=== PATIENT | male | born 1975 | race Caucasian/White ===

== ENCOUNTER 2023-05-29 18:26 | Inpatient (IN) | payer MEDICAID, OTHER ==
[~2023-05-29] VITALS: Ht 167.6 cm; Wt 48.5 kg
[2023-05-29] MEDS ORDERED: IV NORMAL SALINE 1000 ML BAG IV ONE (18:45)
[2023-05-29] MEDS ORDERED: TAMSULOSIN (18:58)
[2023-05-29] MEDS ORDERED: MIDODRINE (18:58)
[2023-05-29] MEDS ORDERED: [UNRECOGNIZED DRUG - OTHER] (18:58)
[2023-05-29] MEDS ORDERED: FERROUS SULFATE (18:58)
[2023-05-29] MEDS ORDERED: HYDROMORPHONE 1 MG/1 ML DISP.SYRIN IV ONE (19:15)
[2023-05-29] MEDS ORDERED: HYDROMORPHONE 1 MG/1 ML DISP.SYRIN ONE (19:19)
[2023-05-29 19:59] LABS: BASOPHILS # (AUTO) 0.3 K/UL (0.0-0.2); BASOPHILS % (AUTO) 2.2 % (0.0-2.0); EOSINOPHILS # (AUTO) 0.2 K/uL (0.0-0.7); EOSINOPHILS % (AUTO) 1.4 % (0.0-7.0); HEMATOCRIT 33.4 % (36.7-47.1); HEMOGLOBIN 10.5 g/dL (12.5-16.3); LYMPHOCYTES # (AUTO) 1.8 K/uL (0.8-4.8); LYMPHOCYTES % (AUTO) 12.3 % (20.5-51.5); MEAN CORPUSCULAR HEMOGLOBIN 23.7 uug (23.8-33.4); MEAN CORPUSCULAR HGB CONC 32 g/dL (32.5-36.3); MEAN CORPUSCULAR VOLUME 74.9 fL (73.0-96.2); MONOCYTES # (AUTO) 0.4 K/uL (0.1-1.30); NEUTROPHILS # (AUTO) 11.9 K/uL (1.8-8.9); NEUTROPHILS % (AUTO) 81.1 % (38.5-71.5); PLATELET COUNT (AUTO) 704 K/uL (152-348); RED BLOOD CELL COUNT(AUTO) 4.45 MIL/uL (4.06-5.63); RED CELL DISTRIBUTION WIDTH 26.7 % (12.1-16.2); WHITE BLOOD COUNT (AUTO) 14.6 K/uL (3.6-10.2)
[2023-05-29 20:00] LABS: DIFFERENTIAL COMMENT 1
[2023-05-29 20:08] LABS: MAGNESIUM 2.1 mg/dL (1.8-2.4)
[2023-05-29 20:38] LABS: CALCIUM 8.7 mg/dL (8.5-10.1); CARBON DIOXIDE 19 mmol/L (21-32); CHLORIDE 102 mmol/L (98-107); CREATININE 0.5 mg/dL (0.6-1.3); GLUCOSE 111 mg/dL (74-106); POTASSIUM 3.6 mmol/L (3.5-5.1); SODIUM SERUM 135 mmol/L (136-145); UREA NITROGEN, BLOOD 11 mg/dL (7-18)
[2023-05-29 20:47] LABS: ALANINE AMINOTRANSFERASE 15 U/L (16-63); ALBUMIN 3.2 g/dL (3.4-5.0); ALKALINE PHOSPHATASE 89 U/L (50-136); ASPARTATE AMINOTRANSFERASE 15 U/L (15-37); BILIRUBIN,DIRECT 0.1 mg/dL (0.0-0.2); BILIRUBIN,TOTAL 0.4 mg/dL (0.2-1.0); TOTAL PROTEIN, SERUM 8.8 g/dL (6.4-8.2)
[2023-05-29] MEDS ORDERED: MAGNESIUM HYDROXIDE 30 ML LIQUID UDC PO PRN (23:15)
[2023-05-29] MEDS ORDERED: ONDANSETRON 4 MG/2 ML VIAL IV PRN (23:15)
[2023-05-29] MEDS ORDERED: IV NS 1000 ML 1,000 ML IV PRN (23:15)
[2023-05-29] MEDS ORDERED: REMEDY ESSENTIAL ZINC PASTE 113 GM TP PRN (23:15)
[2023-05-29] MEDS ORDERED: ACETAMINOPHEN 325 MG TABLET PO PRN (23:15)
[2023-05-30] VITALS (30 sets, daily range): BP systolic 65–225; BP diastolic 46–142; TEMP 97.3–98; O2SAT 100
[2023-05-30 04:49] LABS: BASOPHILS # (AUTO) 0.1 K/UL (0.0-0.2); BASOPHILS % (AUTO) 0.6 % (0.0-2.0); EOSINOPHILS # (AUTO) 0.2 K/uL (0.0-0.7); EOSINOPHILS % (AUTO) 2.3 % (0.0-7.0); HEMATOCRIT 29.6 % (36.7-47.1); HEMOGLOBIN 9.7 g/dL (12.5-16.3); LYMPHOCYTES # (AUTO) 2.4 K/uL (0.8-4.8); LYMPHOCYTES % (AUTO) 23.8 % (20.5-51.5); MEAN CORPUSCULAR HEMOGLOBIN 24.4 uug (23.8-33.4); MEAN CORPUSCULAR HGB CONC 33 g/dL (32.5-36.3); MEAN CORPUSCULAR VOLUME 74.3 fL (73.0-96.2); MONOCYTES # (AUTO) 0.6 K/uL (0.1-1.30); MONOCYTES % (AUTO) 5.9 % (0.0-11.0); NEUTROPHILS # (AUTO) 6.9 K/uL (1.8-8.9); NEUTROPHILS % (AUTO) 67.4 % (38.5-71.5); PLATELET COUNT (AUTO) 563 K/uL (152-348); RED BLOOD CELL COUNT(AUTO) 3.99 MIL/uL (4.06-5.63); RED CELL DISTRIBUTION WIDTH 26.7 % (12.1-16.2); WHITE BLOOD COUNT (AUTO) 10.2 K/uL (3.6-10.2)
[2023-05-30 04:52] LABS: DIFFERENTIAL COMMENT 1
[2023-05-30 05:07] LABS: CALCIUM 8.7 mg/dL (8.5-10.1); CARBON DIOXIDE 21 mmol/L (21-32); CHLORIDE 103 mmol/L (98-107); CREATININE 0.6 mg/dL (0.6-1.3); GLUCOSE 108 mg/dL (74-106); MAGNESIUM 2.2 mg/dL (1.8-2.4); PHOSPHOROUS 4.5 mg/dL (2.5-4.9); POTASSIUM 3.5 mmol/L (3.5-5.1); SODIUM SERUM 136 mmol/L (136-145); UREA NITROGEN, BLOOD 15 mg/dL (7-18)
[2023-05-30] MEDS ORDERED: TAMS-3 PO (08:35)
[2023-05-30] MEDS ORDERED: MIDO5TAB5 PO (09:20)
[2023-05-30] MEDS ORDERED: HYDR2TAB7 PO (09:20)
[2023-05-30] MEDS: IV NS 1000 ML 1,000 ML IV PRN ×2 (09:21→18:32)
[2023-05-30 10:41] LABS: ABG BASE EXCESS -6.7 mmol/L (-2.0-2.0); ABG HCO3 16.7 mmol/L (22.0-26.0); ABG PCO2 27.1 mmHg (35.0-48.0); ABG PH 7.407 (7.340-7.440); ABG PO2 135.9 mmHg (75.0-100.0); ABG SITE RIGHT RADIAL; ABG TOTAL HEMOGLOBIN 11.1 G/dL (14.0-18.0); AaDO2 98.8 mmHg; COHb 0.1 % (0.0-3.9); MetHb 0.3 % (0.0-1.5); O2Hb 98.5 % (94.0-97.0); VT, ABG 800 mL
[2023-05-30] MEDS ORDERED: IOHEXOL 300MG/ML 100 ML INFUS..BTL ONE (10:46)
[2023-05-30] MEDS ORDERED: IV NORMAL SALINE 250 ML IV ONE (10:46)
[2023-05-30] MEDS ORDERED: SWABABLE VALVE TRANSFER SET EA MC ONE (10:46)
[2023-05-30 12:24] LABS: *BILIRUBIN,URIN NEGATIVE (NEGATIVE); *BLOOD, URINE 1+ (NEGATIVE); *CLARITY,URINE CLEAR (CLEAR); *COLOR,URINE YELLOW (YELLOW); *KETONES,URINE NEGATIVE (NEGATIVE); *PROTEIN,URINE 2+ (NEGATIVE); *UROBILINOGEN,URINE 0.2 E.U./dl (NORMAL); LEUKOCYTE ESTERASE ,URINE 3+ (NEGATIVE); NITRITE, URINE POSITIVE (NEGATIVE); PH,URINE 6.5 (5.0-8.0); UGLUCOSE NEGATIVE (NEGATIVE)
[2023-05-30] MEDS ORDERED: IV NORMAL SALINE 500 ML IV ONE (13:30)
[2023-05-30 13:40] LABS: BACTERIA,URINE MODERATE /HPF (NONE SEEN); SQUAMOUS EPITHELIAL CELL,UR FEW /HPF (NONE SEEN); YEAST,URINE BUDDING YEAST /HPF (NONE SEEN)
[2023-05-30] MEDS: MIDODRINE HCL 5 MG TABLET PO PRN (13:45)
[2023-05-30] MEDS ORDERED: KETOROLAC TROMETHAMINE 15 MG INJ IVP PRN (14:00)
[2023-05-30] MEDS ORDERED: IV NS 1000 ML 1,000 ML IV ONE (14:00)
[2023-05-30] MEDS: CEFTRIAXONE 1 G in IV DEXTROSE 5% 50 ML IV SCH ×2 (15:09→15:13)
[2023-05-30] MEDS: HYDROMORPHONE 1 MG/1 ML DISP.SYRIN IV PRN ×2 (18:23→23:00)
[2023-05-30] MEDS ORDERED: hydrALAZINE HCL 20 MG/1 ML VIAL IV ONE (19:30)
[2023-05-30] MEDS ORDERED: hydrALAZINE HCL 20 MG/1 ML VIAL IV PRN (21:00)
[2023-05-30] MEDS ORDERED: KETOROLAC TROMETHAMINE 15 MG INJ IVP ONE (21:00)
[2023-05-30] MEDS: TAMSULOSIN HCL 0.4 MG CAP.SR.24H PO SCH (21:00)
[2023-05-30] MEDS ORDERED: KETOROLAC TROMETHAMINE 15 MG INJ ONE (21:40)
[2023-05-31] VITALS (24 sets, daily range): BP systolic 69–213; BP diastolic 47–164; TEMP 98–99.4; O2SAT 99–100
[2023-05-31] MEDS: MIDODRINE HCL 5 MG TABLET PO PRN (01:28)
[2023-05-31] MEDS: IV NS 1000 ML 1,000 ML IV PRN ×2 (02:37→11:32)
[2023-05-31] MEDS: HYDROMORPHONE 1 MG/1 ML DISP.SYRIN IV PRN ×4 (03:36→15:52)
[2023-05-31 06:50] LABS: BASOPHILS # (AUTO) 0.1 K/UL (0.0-0.2); BASOPHILS % (AUTO) 0.6 % (0.0-2.0); EOSINOPHILS # (AUTO) 0.2 K/uL (0.0-0.7); EOSINOPHILS % (AUTO) 1.2 % (0.0-7.0); HEMATOCRIT 34.8 % (36.7-47.1); HEMOGLOBIN 11.4 g/dL (12.5-16.3); LYMPHOCYTES # (AUTO) 3.3 K/uL (0.8-4.8); LYMPHOCYTES % (AUTO) 24.3 % (20.5-51.5); MEAN CORPUSCULAR HEMOGLOBIN 24.9 uug (23.8-33.4); MEAN CORPUSCULAR HGB CONC 33 g/dL (32.5-36.3); MEAN CORPUSCULAR VOLUME 75.7 fL (73.0-96.2); MONOCYTES # (AUTO) 0.8 K/uL (0.1-1.30); MONOCYTES % (AUTO) 5.9 % (0.0-11.0); NEUTROPHILS # (AUTO) 9.2 K/uL (1.8-8.9); PLATELET COUNT (AUTO) 727 K/uL (152-348); RED BLOOD CELL COUNT(AUTO) 4.59 MIL/uL (4.06-5.63); RED CELL DISTRIBUTION WIDTH 26.6 % (12.1-16.2); WHITE BLOOD COUNT (AUTO) 13.6 K/uL (3.6-10.2)
[2023-05-31 07:19] LABS: CALCIUM 8.7 mg/dL (8.5-10.1); CARBON DIOXIDE 20 mmol/L (21-32); CHLORIDE 108 mmol/L (98-107); CREATININE 0.4 mg/dL (0.6-1.3); GLUCOSE 113 mg/dL (74-106); MAGNESIUM 2.3 mg/dL (1.8-2.4); PHOSPHOROUS 3.8 mg/dL (2.5-4.9); POTASSIUM 3.9 mmol/L (3.5-5.1); SODIUM SERUM 140 mmol/L (136-145); UREA NITROGEN, BLOOD 12 mg/dL (7-18)
[2023-05-31 07:20] LABS: DIFFERENTIAL COMMENT 1
[2023-05-31] MEDS ORDERED: ASPIRIN 81 MG TAB.CHEW GT SCH (09:00)
[2023-05-31] MEDS: FLUCONAZOLE 200 MG TABLET PO SCH (09:29)
[2023-05-31] MEDS ORDERED: NITROGLYCERIN OINT 1 GM PACKET TP PRN (09:30)
[2023-05-31] MEDS: KETOROLAC TROMETHAMINE 15 MG INJ IVP PRN ×2 (09:53→20:46)
[2023-05-31] MEDS: TAMSULOSIN HCL 0.4 MG CAP.SR.24H PO SCH (22:44)
[2023-05-31] MEDS: TIZANIDINE HCL 4 MG TABLET PO SCH (22:44)
[2023-06-01] VITALS (21 sets, daily range): BP systolic 59–203; BP diastolic 41–164; TEMP 97.1–98.1; O2SAT 99
[2023-06-01] MEDS: IV NS 1000 ML 1,000 ML IV PRN ×3 (01:03→20:52)
[2023-06-01] MEDS: KETOROLAC TROMETHAMINE 15 MG INJ IVP PRN ×2 (02:54→13:40)
[2023-06-01 05:18] LABS: BASOPHILS % (AUTO) 0.3 % (0.0-2.0); DIFFERENTIAL COMMENT 0; EOSINOPHILS # (AUTO) 0.3 K/uL (0.0-0.7); EOSINOPHILS % (AUTO) 3.5 % (0.0-7.0); HEMATOCRIT 25.8 % (36.7-47.1); HEMOGLOBIN 8.5 g/dL (12.5-16.3); LYMPHOCYTES # (AUTO) 2.7 K/uL (0.8-4.8); LYMPHOCYTES % (AUTO) 28.7 % (20.5-51.5); MEAN CORPUSCULAR HEMOGLOBIN 25.1 uug (23.8-33.4); MEAN CORPUSCULAR HGB CONC 33 g/dL (32.5-36.3); MEAN CORPUSCULAR VOLUME 76.6 fL (73.0-96.2); MONOCYTES # (AUTO) 0.6 K/uL (0.1-1.30); MONOCYTES % (AUTO) 6.7 % (0.0-11.0); NEUTROPHILS # (AUTO) 5.7 K/uL (1.8-8.9); NEUTROPHILS % (AUTO) 60.8 % (38.5-71.5); PLATELET COUNT (AUTO) 451 K/uL (152-348); RED BLOOD CELL COUNT(AUTO) 3.37 MIL/uL (4.06-5.63); RED CELL DISTRIBUTION WIDTH 26.7 % (12.1-16.2); WHITE BLOOD COUNT (AUTO) 9.4 K/uL (3.6-10.2)
[2023-06-01 05:25] LABS: IRON, SERUM 18 ug/dL (50-175)
[2023-06-01 05:37] LABS: THYROID STIMULATING HORMONE 1.811 mIU/mL (0.358-3.740)
[2023-06-01 05:51] LABS: CALCIUM 7.7 mg/dL (8.5-10.1); CARBON DIOXIDE 20 mmol/L (21-32); CHLORIDE 109 mmol/L (98-107); CREATININE 0.4 mg/dL (0.6-1.3); FERRITIN 59 ng/mL (26-388); GLUCOSE 113 mg/dL (74-106); MAGNESIUM 1.9 mg/dL (1.8-2.4); PHOSPHOROUS 4.4 mg/dL (2.5-4.9); SODIUM SERUM 140 mmol/L (136-145); UREA NITROGEN, BLOOD 13 mg/dL (7-18)
[2023-06-01] MEDS: FLUCONAZOLE 200 MG TABLET PO SCH (09:41)
[2023-06-01] MEDS: POTASSIUM CHLORIDE 20 MEQ TAB.PRT.SR PO SCH ×3 (12:34→16:06)
[2023-06-01] MEDS: HYDROMORPHONE 1 MG/1 ML DISP.SYRIN IV PRN ×3 (12:34→20:03)
[2023-06-01 13:09] LABS: HEMATOCRIT 31.8 % (36.7-47.1); HEMOGLOBIN 10.2 g/dL (12.5-16.3)
[2023-06-01] MEDS: SOD FERRIC GLUC COMPLX/SUCROSE 125 MG in IV NORMAL SALINE 100 ML IV SCH (14:11)
[2023-06-01] MEDS: CEFTRIAXONE 1 G in IV DEXTROSE 5% 50 ML IV SCH (14:12)
[2023-06-01] MEDS: TAMSULOSIN HCL 0.4 MG CAP.SR.24H PO SCH (20:02)
[2023-06-01] MEDS: TIZANIDINE HCL 4 MG TABLET PO SCH (20:02)
[2023-06-02] VITALS (11 sets, daily range): BP systolic 96–178; BP diastolic 64–118; TEMP 97.7–98.8; O2SAT 98–100
[2023-06-02] MEDS: HYDROMORPHONE 1 MG/1 ML DISP.SYRIN IV PRN ×4 (00:33→14:17)
[2023-06-02] MEDS ORDERED: diphenhydrAMINE 50 MG/1 ML VIAL IV PRN (05:00)
[2023-06-02 05:07] LABS: BASOPHILS # (AUTO) 0.2 K/UL (0.0-0.2); BASOPHILS % (AUTO) 1.8 % (0.0-2.0); EOSINOPHILS # (AUTO) 0.4 K/uL (0.0-0.7); EOSINOPHILS % (AUTO) 4.8 % (0.0-7.0); HEMATOCRIT 26.4 % (36.7-47.1); HEMOGLOBIN 8.6 g/dL (12.5-16.3); LYMPHOCYTES # (AUTO) 3.7 K/uL (0.8-4.8); MEAN CORPUSCULAR HEMOGLOBIN 24.6 uug (23.8-33.4); MEAN CORPUSCULAR HGB CONC 33 g/dL (32.5-36.3); MEAN CORPUSCULAR VOLUME 75.7 fL (73.0-96.2); MONOCYTES # (AUTO) 0.7 K/uL (0.1-1.30); MONOCYTES % (AUTO) 7.9 % (0.0-11.0); NEUTROPHILS # (AUTO) 3.5 K/uL (1.8-8.9); NEUTROPHILS % (AUTO) 41.5 % (38.5-71.5); PLATELET COUNT (AUTO) 429 K/uL (152-348); RED BLOOD CELL COUNT(AUTO) 3.49 MIL/uL (4.06-5.63); RED CELL DISTRIBUTION WIDTH 26.7 % (12.1-16.2); WHITE BLOOD COUNT (AUTO) 8.4 K/uL (3.6-10.2)
[2023-06-02 05:18] LABS: DIFFERENTIAL COMMENT 1
[2023-06-02 05:24] LABS: CALCIUM 8.5 mg/dL (8.5-10.1); CARBON DIOXIDE 19 mmol/L (21-32); CHLORIDE 109 mmol/L (98-107); CREATININE 0.5 mg/dL (0.6-1.3); GLUCOSE 76 mg/dL (74-106); PHOSPHOROUS 2.9 mg/dL (2.5-4.9); POTASSIUM 3.6 mmol/L (3.5-5.1); SODIUM SERUM 142 mmol/L (136-145); UREA NITROGEN, BLOOD 9 mg/dL (7-18)
[2023-06-02] MEDS: FLUCONAZOLE 200 MG TABLET PO SCH (09:25)
[2023-06-02] MEDS ORDERED: FLUC200T PO (11:10)
[2023-06-02] MEDS ORDERED: CEPH500T PO (11:10)
[2023-06-02] MEDS: SOD FERRIC GLUC COMPLX/SUCROSE 125 MG in IV NORMAL SALINE 100 ML IV SCH (14:25)
[2023-06-02] MEDS: CEFTRIAXONE 1 G in IV DEXTROSE 5% 50 ML IV SCH (14:25)
[2023-06-03 01:06] LABS: CARCINOEMBRYONIC AG (CEA) 2.1 ng/mL (0.0-4.7)
[2023-06-03 08:08] LABS: *IMMUNOGLOBULIN G, SERUM 1843 mg/dL (603-1613); IMMUNOGLOBULIN A, SERUM 611 mg/dL (90-386); IMMUNOGLOBULIN M, SERUM 112 mg/dL (20-172)
[2023-06-03 10:11] LABS: A/G RATIO 0.8 (0.7-1.7); ALBUMIN 2.9 g/dL (2.9-4.4); ALPHA-1-GLOBULIN 0.2 g/dL (0.0-0.4); ALPHA-2-GLOBULIN 0.6 g/dL (0.4-1.0); BETA GLOBULIN 0.9 g/dL (0.7-1.3); GAMMA GLOBULIN 1.9 g/dL (0.4-1.8); GLOBULIN, TOTAL 3.5 g/dL (2.2-3.9); M-SPIKE Not Observed g/dL (Not Observed)
[2023-06-03 13:12] LABS: FREE KAPPA LT CHAINS SERUM 57.6 mg/L (3.3-19.4); FREE LAMBDA LT CHAIN SERUM 27.2 mg/L (5.7-26.3); KAPPA/LAMBDA RATIO SERUM 2.12 (0.26-1.65)
== END 2023-06-02 14:30 | disposition hospice, home (50) | DRG 720 ==
LOC: ER 18:29 → CCU 23:00
PROVIDERS: ADMIT Internal Medicine; ATTEND Nurse Practitioner Family
PROC: 5A1945Z Respiratory Ventilation, 24-96 Consecutive Hours (ICD-10-PCS; principal; 2023-05-29)
DX: A41.50 Gram-negative sepsis, unspecified (principal); G82.50 Quadriplegia, unspecified; J96.12 Chronic respiratory failure with hypercapnia; C79.51 Secondary malignant neoplasm of bone; E44.1 Mild protein-calorie malnutrition; J96.11 Chronic respiratory failure with hypoxia; E87.1 Hypo-osmolality and hyponatremia; Z93.0 Tracheostomy status; Z99.11 Dependence on respirator [ventilator] status; E88.09 Other disorders of plasma-protein metabolism, not elsewhere classified; J32.0 Chronic maxillary sinusitis; C30.0 Malignant neoplasm of nasal cavity; S14.104S Unspecified injury at C4 level of cervical spinal cord, sequela; I95.9 Hypotension, unspecified; G90.4 Autonomic dysreflexia; B37.49 Other urogenital candidiasis; B37.7 Candidal sepsis; R51.9 Headache, unspecified; N39.0 Urinary tract infection, site not specified; Z92.3 Personal history of irradiation; X58.XXXS Exposure to other specified factors, sequela; Z90.5 Acquired absence of kidney; Z87.442 Personal history of urinary calculi; Z88.1 Allergy status to other antibiotic agents; D53.9 Nutritional anemia, unspecified; Z79.899 Other long term (current) drug therapy; Z53.29 Procedure and treatment not carried out because of patient's decision for other reasons; E11.9 Type 2 diabetes mellitus without complications; Z98.1 Arthrodesis status; D50.9 Iron deficiency anemia, unspecified; D75.839 Thrombocytosis, unspecified
CPT/HCPCS: 36415; 36600; 70450; 70487; 71045; 82378; 82533; 82747; 82784; 83550; 83605; 83690; 83735; 84100; 84155; 84165; 84443; 84484; 85014; 85018; 85025; 86334; 87040; 93005; 94002; 94003; 94760; A4663; A6209; G0378; J0360; J0696; J1170; J1200; J1885; J2916; J7040; Q9967